=== PATIENT | female | born 1950 | race Caucasian/White ===

== ENCOUNTER 2016-12-07 05:35 | Day surgery (SDC) | payer OTHER, MEDICARE ==
[2016-12-07] VITALS (8 sets, daily range): BP systolic 118–153; BP diastolic 63–84
[~2016-12-07] VITALS: Ht 160 cm; Wt 113.4 kg
--- NOTE | ~2016-12-07 | O ---
[facility] Estela [place] [address] OPERATIVE REPORT Name: ENRRIQUE BOBO Room #: [facility] M..#: [id number] Admission: 12/07/16 Attend Phys: Nasir Reaves MD Discharge: 12/08/16 Date of : 50 Report #: [id number] THIS REPORT FOR: //name// CC: Nasir Fernándezmez DATE OF SERVICE: 12/07/2016 PREOPERATIVE DIAGNOSIS: Incarcerated ventral incisional hernia. POSTOPERATIVE DIAGNOSES: Multiple incarcerated ventral incisional hernias containing omentum and preperitoneal fat as well as hernia sac. FINDINGS: [place] cheese defect, total measurements of defects as a whole approximately 14 cm x 8 cm, repaired with 25 cm x [address] mesh with echo positioning system secured with absorbable tacking device. SURGEON: Nasir Reaves M.D. CITRUS PICKER: Harsh Norton DO PROCEDURE: Laparoscopic repair of incarcerated ventral incisional hernias with mesh, modifier 22 regarding BMI of 44, multiple hernia defects with [place] cheese deformity, significantly thick abdominal wall giving difficulty with securing of the mesh appropriately. ANESTHESIA: General endotracheal anesthesia and local anesthetic. ESTIMATED BLOOD LOSS: 50 mL. SPECIMENS TO PATHOLOGY: Incarcerated ventral incisional hernia contents. COMPLICATIONS: None applicable. INDICATION FOR PROCEDURE: The patient is a very pleasant 66-year-old female patient with history of abdominal pain and a known ventral hernia defect. This had been from a prior operation many years ago. Over the past year, this hernia has grown in size and become more uncomfortable, especially with certain positions and with any strenuous activity. General surgery was therefore consulted, and the patient was previously seen last year at which time she wanted to wait on a repair. More recently, she was seen in the clinic and stated that her discomfort had become worsened. Detailed discussion of risks and benefits of surgical intervention was again held with the patient including bleeding, pain, infection, hernia recurrence, damage to surrounding structures such as bowel, colon, stomach, kidneys, ureter, bladder and other nearby organs, possible risk of mesh infection, possible postoperative abscess or hematoma, [address] [address] OPERATIVE REPORT Name: ENRRIQUE BOBO Room #: DEP [facility] M.R.#: [id number] Admission: 12/07/16 Attend Phys: Nasir Reaves MD Discharge: 12/08/16 Date of : 50 Report #: [id number] possible need for further future intervention should any of these expected complications arise. All questions were answered to the patient's satisfaction and written informed consent was obtained. DESCRIPTION OF PROCEDURE: The patient was brought to the operating room and placed in a supine position. Timeout was taken to verify the patient's identity and to plan the procedure. SCDs were in place in the lower extremities bilaterally. Preoperative antibiotics were administered. Anesthesia was induced. The patient was intubated. Abdomen was sterilely prepped and draped in standard fashion. There was some difficulty with draping of the patient given the significant habitus with a BMI of 44. Drape was cut to accommodate the tissue to be able to place the ports out sufficiently lateral for good geometry. Left upper quadrant 5 mm incision was made after local anesthetic had been infiltrated. A 5-mm 0-degree laparoscope was utilized for direct optical access to the peritoneal cavity. Pneumoperitoneum was created and inspection of the viscera showed that no injury had occurred upon entry. A 5-mm left lower quadrant port was placed in similar fashion and a 12-mm left lateral port was placed after local anesthetic had been infiltrated under direct visualization. Immediately, it was noted that a significant amount of omentum was incarcerated within multiple ventral hernia defects along the midline from a prior operation. This had a [place] cheese defect configuration with approximately 5 small circumscribed hernias all adjacent to one another, all containing omentum and preperitoneal fat. A 5-mm right upper quadrant and 5-mm right lower quadrant port were placed also under direct visualization with infiltrated local anesthetic. The patient was placed in the left side up Trendelenburg position and omentum was carefully reduced from the defects using Sonicision energy device, blunt dissection and sharp dissection. No obvious bowel loops were encountered that had been incarcerated as these must have reduced upon creation of pneumoperitoneum. Painstaking lysis of adhesions and reduction of these hernias was performed requiring at least 120 minutes. Once the hernia defects had been reduced, the incarcerated ventral incisional hernia contents were passed off, these had to be removed through the 12 mm port site, which was removed and a ringed forceps was utilized to extract the substantial quantity of omental fat and preperitoneal fat as well as hernia sac tissue. Hemostasis was then verified and the peritoneum was stripped down circumferentially, surrounding the hernia defects. These were then able to be measured appropriately, and as a whole these measured 14 x 8 cm. Care was taken to ensure that the falciform ligament and the peritoneum inferiorly were sufficiently stripped away to expose the fascia for mesh implantation. Next, a Ventralight ST mesh measuring 25 x 20 cm was selected. This was rolled into a cylinder and passed through the 12-mm port into the abdominal cavity. This was then unfurled and echo positioning system was deployed. This brought the mesh up against the anterior abdominal wall. Intraabdominal pressure was brought down to a level of 8-10 cm of water pressure. Secure Strap absorbable tacking system was utilized to anchor the mesh circumferentially ensuring that no large gaps were left along the edge of the Ventralight mesh. Secure Strap was also [facility] [address] [place] [address] OPERATIVE REPORT Name: ENRRIQUE BOBO Room #: DEP [facility] M.R.#: [id number] Admission: 12/07/16 Attend Phys: Nasir Reaves MD Discharge: 12/08/16 Date of : 50 Report #: [id number] utilized across the central portions of the mesh to fix this well against the anterior abdominal wall. Once this was noted to be in excellent position, hemostasis was again verified. Intraoperative photographs had been taken at various points during the operation. At this point, the 12-mm port was removed and the fascia was closed at that level using 0 PDS [id number] suture under direct vision. Pneumoperitoneum was removed and the 5 mm ports were removed. A 4-0 Monocryl subcuticular stitches were used to close each of the port sites after local anesthetic had further been infiltrated in each of the sites. Dermabond was applied superficially at each of the 5 incisions as well as the stab incision, which had been created along the ventral midline to elevate the echo positioning system into place. At this point, the case was ended. All instrumentation had been extracted and accounted for. All counts were correct per nursing report. The patient was awakened, extubated and taken to the postoperative care unit in stable condition. <ELECTRONICALLY SIGNED> By: Nasir Reaves MD 12/19/16 1505 1106 1204 Nasir Reaves MD /nt
--- NOTE | ~2016-12-07 | S ---
[facility] [place] [address] SURGICAL PATH RPT PROCEDURE Name: ARABELLA BOBO Room #: DEP [facility] M.R.#: [id number] Admission: 12/07/16 Date of : 50 Discharge: 12/08/16 Report #: [id number] Path Case #: [id number] PATHOLOGY REPORT COLLECTION DATE: 12/07/2016 RECEIVED DATE: 12/08/2016 SUBMITTING PHYS: Dr. Nasir Reaves OTHER PHYS: Dr. Carmelina Lopez SPECIMEN(S) RECEIVED: A.Ventral incisional hernia contents * * * * * * * * * * * * FINAL DIAGNOSIS: Fibroadipose tissue, "ventral incisional hernia contents", herniorrhaphy: - Fibroadipose tissue consistent with hernia contents. PATHOLOGIST: Thor Alexander M.D. REPORT ELECTRONICALLY SIGNED BY: Thor Alexander M.D. DATE/TIME: 12/09/2016 10:48 * * * * * * * * * * * * GROSS PATHOLOGY: Received in formalin labeled "Arabella polyps, ventral incisional hernia contents," are multiple pieces of fibroadipose tissue measuring 6.1 x 5.2 x 1.5 cm in aggregate dimensions. No nodules or lesions are identified. Car Pre Cooler tissue is submitted in cassette A1. (CAA; 12/08/2016) CLINICAL HISTORY: Ventral incisional hernia INITIAL CPT CODE(S): A; 10591 Professional services performed by [facility] at [facility] [address] [place], [place] [address] Technical services performed by [facility] at [address] [place] [address], [facility] [address], [place] [address]. [facility] [address] [place] [address] SURGICAL PATH RPT PROCEDURE Name: ARABELLA BOBO Room #: DEP [facility] Max.#: [id number] Admission: 12/07/16 Date of : 50 Discharge: 12/08/16 Report #: [id number] Path Case #: [id number] [facility] [address] PHONE: [phone] DIRECTOR: Duke Odom M.D. * * * END OF REPORT * * *
--- NOTE | ~2016-12-07 | EKG ---
[address] [address] ELECTROCARDIOGRAM REPORT Name: ENRRIQUE BOBO Room #: 304-P REG [facility]#: [id number] Admission: 12/07/16 Attend Phys: Nasir Reaves MD Discharge: Date of : 50 Report #: [id number] THIS REPORT FOR: //name// [facility] Test Date: 2016-12-07 Test Time: 09:03:27 Pat Name: ENRRIQUE BOBO Department: Room: 150 3 Gender: F Grade Setter: johnnie : 1950 Requested By: Nasir Reaves Order Number: [id number] MD: Ranjit Ontiveros Measurements Intervals Neptune Rate: 64 P: 55 MS: 150 QRS: 27 QRSD: 102 T: 30 QT: 416 QTc: 430 Interpretive Statements Sinus rhythm Borderline T abnormalities, anterior leads Compared to ECG 04/11/2016 10:55:18 No significant changes Electronically Signed On 12-08-2016 7:12:48 CDT by Ranjit Ontiveros [email or web address] <ELECTRONICALLY SIGNED> By: Ranjit Ontiveros MD, [facility] 12/08/16 0712 2 2 Ranjit Ontiveros MD, [facility] /EPI
[~2016-12-07 05:35] MED LIST: AMLODIPINE BESY10 MG PO; BUSPIRONE HCL15 MG PO; CLONAZEPAM 1 MG1 M1 PO; HORIZANT300 MG PO; HYDROCHLOROTHIA25 M2 PO; HYOSCYAMINE0.125 M2 PO; LEVAQUIN 500 M500 M2 PO; LEVOTHYROXIN0.075 MG PO; LISINOPRIL10 MG PO; LOMOTIL TABLET1 EACH PO; LOPERAMIDE 2 MG2 M1 PO; OXCARBAZEPINE300 M1 PO; PAXIL10 MG PO; PROZAC20 MG PO; REQUIP 0.25 M0.25 M1 PO; VITAMIN D1000 UNI1 PO; ZANTAC 150MG T150 MG PO
[2016-12-07 08:59] LABS: HEMOGLOBIN 14.5 gm/dL (12.0-15.0)
[2016-12-07 09:10] LABS: CALCIUM 9.2 mg/dL (8.5-10.1); POTASSIUM 3.8 mmol/L (3.5-5.1)
[2016-12-07] MEDS ORDERED: ZOFRAN ODT4 MG DISSOLVE (15:12)
[2016-12-07] MEDS ORDERED: HYDROCODONE-AP1 EAC6 PO (15:12)
[2016-12-07] MEDS ORDERED: IBUPROFEN 800800 M1 PO (15:12)
[2016-12-07] MEDS ORDERED: COLACE100 MG PO (15:12)
[2016-12-07 17:31] LABS: ABG SAMPLE TYPE ARTERIAL; BE(vivo) -1.9 mmol/L (-2 to +3); HCO3 23.5 mmol/L (22.0-26.0); LACTATE 3.84 mmol/L (0.5-2.0); O2(CT) 17.7 mL/dL (15.0-23.0); O2Hb 91.1 % (92.0-98.0); PCO2 42.5 mmHg (35.0-45.0); PO2 64.1 mmHg (80.0-100.0); STICK SITE L.RADIAL; pH 7.361 (7.360-7.450); sO2 91.7 % (92.0-98.0); tCO2 24.8 mmol/L (24.0-30.0)
[2016-12-07 18:24] LABS: CALCIUM 8.4 mg/dL (8.5-10.1); POTASSIUM 3.7 mmol/L (3.5-5.1)
[2016-12-07 18:30] LABS: ALBUMIN 3.4 g/dL (3.4-5.0); TOTAL BILIRUBIN 0.2 mg/dL (<0.1-1.0); TOTAL PROTEIN 6.3 g/dL (6.4-8.2)
[2016-12-07 20:16] LABS: HEMATOCRIT 39.7 % (37.0-47.0); HEMOGLOBIN 13.3 gm/dL (12.0-15.0); MCHC 33.5 g/dL (28.0-37.0); MCV 86.6 fL (80.0-100.0); RBC 4.58 mil/uL (4.20-5.00); RDW 14.3 % (10.5-14.5); WBC 16.5 thou/uL (4.0-11.0)
[2016-12-08] VITALS (7 sets, daily range): BP systolic 110–153; BP diastolic 59–84
[2016-12-08 09:44] LABS: ABSOLUTE NEUTROPHILS 13.7 thou/uL (1.4-8.2); BASOPHILS 0.2 % (0.0-2.0); HEMATOCRIT 35.4 % (37.0-47.0); HEMOGLOBIN 11.9 gm/dL (12.0-15.0); LYMPHOCYTES 8.2 % (24.0-44.0); MCH 29.1 pg (26.0-34.0); MCHC 33.6 g/dL (28.0-37.0); MCV 86.5 fL (80.0-100.0); MONOCYTES 6.4 % (1.0-8.0); PLATELET COUNT 252 thou/uL (150-400); POLYS 85.2 % (36.0-66.0); RBC 4.09 mil/uL (4.20-5.00); RDW 14.6 % (10.5-14.5); WBC 16.1 thou/uL (4.0-11.0)
[2016-12-08 09:45] LABS: MANUAL DIFF NO
[2016-12-08 09:57] LABS: ALBUMIN 3.1 g/dL (3.4-5.0); CALCIUM 7.9 mg/dL (8.5-10.1); CREATININE 0.9 mg/dL (0.6-1.0); POTASSIUM 3.3 mmol/L (3.5-5.1); TOTAL BILIRUBIN 0.4 mg/dL (<0.1-1.0); TOTAL PROTEIN 5.8 g/dL (6.4-8.2)
== END 2016-12-08 17:59 | disposition home or self-care (01) ==
LOC: TBA 05:35 → OR 05:35 → TBA 05:36 → OR 10:16 → 3N 17:50 → OR 12-08 17:59
PROVIDERS: Hospitalist; Otolaryngology
DX: K43.0 Incisional hernia with obstruction, without gangrene (principal); I10 Essential (primary) hypertension; I21.4 Non-ST elevation (NSTEMI) myocardial infarction; E78.5 Hyperlipidemia, unspecified; E03.9 Hypothyroidism, unspecified; K21.9 Gastro-esophageal reflux disease without esophagitis; E66.09 Other obesity due to excess calories; F41.9 Anxiety disorder, unspecified; F32.9 Major depressive disorder, single episode, unspecified; Z68.41 Body mass index [BMI] 40.0-44.9, adult; Z98.890 Other specified postprocedural states

== ENCOUNTER → 2017-05-10 | Outpatient (CLI) | payer OTHER, MEDICARE ==
[~2017-05-10] MED LIST changes: +COLACE100 MG PO; +HYDROCODONE-AP1 EAC6 PO; +IBUPROFEN 800800 M1 PO; +ZOFRAN ODT4 MG DISSOLVE
== END ==
LOC: RAD 01:39
DX: Z12.31 Encounter for screening mammogram for malignant neoplasm of breast (principal)

== ENCOUNTER → 2017-05-25 | Outpatient (CLI) | payer OTHER, MEDICARE | LOC: ULTRA 08:55 | DX: N63.20 Unspecified lump in the left breast, unspecified quadrant (principal); N63.10 Unspecified lump in the right breast, unspecified quadrant ==

== ENCOUNTER → 2017-12-13 | Outpatient (CLI) | payer OTHER, MEDICARE | LOC: RAD 09:30 | DX: R92.8 Other abnormal and inconclusive findings on diagnostic imaging of breast (principal) ==

== ENCOUNTER → 2019-02-06 | Outpatient (CLI) | payer OTHER, MEDICARE | LOC: RAD 01:27 | DX: Z12.31 Encounter for screening mammogram for malignant neoplasm of breast (principal) ==

== ENCOUNTER → 2020-04-02 | Outpatient (CLI) | payer OTHER, MEDICARE | LOC: BC 03-30 11:19 → RAD 13:55 | PROVIDERS: ATTEND Family Medicine | DX: Z12.31 Encounter for screening mammogram for malignant neoplasm of breast (principal) ==

== ENCOUNTER → 2020-05-20 | Outpatient (CLI) | payer OTHER, MEDICARE | LOC: LAB 10:15 | PROVIDERS: ATTEND Family Medicine | DX: U07.1 COVID-19 (principal) ==

== ENCOUNTER → 2021-01-05 | Outpatient (CLI) | payer OTHER, MEDICARE | LOC: CAT 13:28 | PROVIDERS: ATTEND Family Medicine | DX: K43.9 Ventral hernia without obstruction or gangrene (principal); K57.30 Diverticulosis of large intestine without perforation or abscess without bleeding; K76.89 Other specified diseases of liver ==

== ENCOUNTER → 2021-01-20 | Outpatient (CLI) | payer OTHER, MEDICARE | LOC: RAD 15:17 | PROVIDERS: ATTEND Family Medicine | DX: M77.31 Calcaneal spur, right foot (principal); R05 Cough; I70.0 Atherosclerosis of aorta ==

== ENCOUNTER → 2021-02-04 | Outpatient (CLI) | payer OTHER, MEDICARE | LOC: SJCVC 13:46 | PROVIDERS: ATTEND Internal Medicine | DX: R00.2 Palpitations (principal); I10 Essential (primary) hypertension; E11.9 Type 2 diabetes mellitus without complications; E78.5 Hyperlipidemia, unspecified; G47.33 Obstructive sleep apnea (adult) (pediatric); E03.9 Hypothyroidism, unspecified; Z79.899 Other long term (current) drug therapy; Z82.49 Family history of ischemic heart disease and other diseases of the circulatory system ==

== ENCOUNTER → 2021-02-23 | Outpatient (CLI) | payer OTHER, MEDICARE | LOC: SJCVCIMAG 09:15 | PROVIDERS: ATTEND Internal Medicine | DX: I49.3 Ventricular premature depolarization (principal); I07.1 Rheumatic tricuspid insufficiency; I11.9 Hypertensive heart disease without heart failure; E11.9 Type 2 diabetes mellitus without complications; R00.2 Palpitations; R06.09 Other forms of dyspnea; E78.5 Hyperlipidemia, unspecified; Z79.899 Other long term (current) drug therapy ==

== ENCOUNTER → 2021-07-19 | Outpatient (CLI) | payer OTHER, MEDICARE | LOC: BC 10:40 | PROVIDERS: ATTEND Family Medicine | DX: Z12.31 Encounter for screening mammogram for malignant neoplasm of breast (principal) ==